=== PATIENT | female | born 1955 | race African-American/Black ===

== ENCOUNTER → 2016-10-17 | Outpatient (CLI) | payer MEDICARE, OTHER ==
--- NOTE | ~2016-10-17 | CT55 ---
[facility] A Service of [facility] & [facility] RADIOLOGY TEXT RESULTS PATIENT: ANUP[facility] BEGUM [facility] UN[facility] #: [id number] AGE: [address]: Mariah Carey MD SEX: F ORDER DR: [id number] [facility] [address] [place], [place] [address] [id number] O MR#: [id number] Acc #: [id number] NAME: ANUPAMA BEGUM : 1955 SEX: F STUDY DATE/TIME: 10/17/2016 15:33 UNIT: CCAT ROOM: STUDY DESCRIPTION: CT Chest W Con Attending Physician: Mariah Carey M.D., Ph.D. Referring Physician: Mariah Carey M.D., Ph.D. Ordering Physician: Mariah Carey M.D., Ph.D. Primary Care Physician: Lacey Valdez M.D. MEDICAL IMAGING REPORT This report is preliminary unless electronic signature is present EXAM CT chest with contrast, 10/17/2016, 1533 hours. CLINICAL HISTORY 61-year-old woman with a history of breast cancer and anal cancer, history of previous chemotherapy and radiation therapy, observation for suspected malignant neoplasm. Patient has no current chest complaints. COMPARISON None available. TECHNIQUE Dynamic helical CT images were obtained from the lung apices through the adrenal glands. Sagittal and coronal reconstructions were performed. Contrast was Isovue-370 70 mL IV. Total exam DLP for the chest, abdomen, and pelvis exam today is 1305 mGy-cm. This CT exam was performed with one or more of the following radiation dose reduction techniques: automatic exposure control, adjustment of mA and/or kV according to patient size, and iterative reconstruction. FINDINGS Images through the thoracic inlet demonstrate no thyroid mass or supraclavicular adenopathy. There is a right central venous port catheter with tip terminating in the SVC. Images through the chest demonstrate ectasia of the ascending aorta measuring 3.6 cm with no dissection. There is no pathologic mediastinal, hilar, or axillary adenopathy. There is a 1 cm right infrahilar node felt likely benign. There is no pericardial or pleural fluid. There is a very small hiatal hernia. [facility]. [facility] A Service of [facility] RADIOLOGY TEXT RESULTS PATIENT: ANUPAMA BEGUM LOCATION: [facility] : 51 UNIT #: [id number] AGE: [address]: Mariah Carey MD SEX: F ORDER DR: Lung window images demonstrate a 2 mm noncalcified nodule in the anterior left upper lobe and the lateral left upper lobe. These abut the pleural surface. There is a vague 3 mm nodule associated with the pleura of the major fissure on image 25 on the left. There is a calcified granuloma at the left base and small noncalcified nodules abutting the dome of the hemidiaphragm. The right lung demonstrates tiny micronodules, as well. At least 1 of these appears calcified. There is some linear atelectasis at the right base. Please see CT abdomen report for findings below the hemidiaphragms. Bone window images demonstrate diffuse sclerotic or blastic changes in almost all of the visualized vertebral bodies, as well as the manubrium and sternum consistent with metastatic disease to bone, most likely from breast primary. No fracture or canal compromise is demonstrated. IMPRESSION 1. There is left mastectomy change with no chest wall recurrence seen. 2. There is underlying benign calcified granulomatous change with tiny subpleural nodules in both lungs, some of which are calcified and some which are noncalcified. These are indeterminate. Correlation with historical imaging would be helpful in assessing stability. 3. Diffuse mixed blastic/sclerotic change throughout the vertebral bodies of the thoracic spine, as well as the manubrium and sternum consistent with bone metastasis likely from breast carcinoma. 4. Please see separately dictated report for findings below the hemidiaphragms on the CT abdomen and pelvis study. Dictated by... Mena Pugh M.D. THIS IS AN ELECTRONICALLY VERIFIED REPORT Mena Pugh M.D. at 10/18/2016 8:41 PM TAMICA/chrissy TD: 10/18/2016 15:56 JOB #: [id number] MEDICAL IMAGING REPORT Page 1 of 1 COPY
--- NOTE | ~2016-10-17 | CT2 ---
[facility] A Service of [facility] & [facility] RADIOLOGY TEXT RESULTS PATIENT: ANUPAMA BEGUM [facility] 51 UNIT #: [id number] AGE: [address]: Mariah Carey MD SEX: F ORDER DR: [id number] [facility] [address] [place], [place] [address] [id number] O MR#: [id number] Acc #: [id number] NAME: ANUPAMA BEGUM : 1955 SEX: F STUDY DATE/TIME: 10/17/2016 13:56 UNIT: CCAT ROOM: STUDY DESCRIPTION: CT Abd and Pelv W Cont Attending Physician: Mariah Carey M.D., Ph.D. Referring Physician: Mariah Carey M.D., Ph.D. Ordering Physician: Mariah Carey M.D., Ph.D. Primary Care Physician: Lacey Valdez M.D. MEDICAL IMAGING REPORT This report is preliminary unless electronic signature is present EXAM Abdomen and pelvis CT with contrast HISTORY Breast cancer. The patient is currently asymptomatic. Evaluate for abdomen and pelvis malignancy suspected. TECHNIQUE Axial images were obtained through the abdomen and pelvis with intravenous contrast. 100 mL of Isovue was used. This CT exam was performed with one or more of the following radiation dose reduction techniques: automatic exposure control, adjustment of mA and/or kV according to patient size, and iterative reconstruction. FINDINGS There is a subtle area of low density that is poorly defined in the right hepatic lobe. It has a more curvilinear configuration suggestive of an unopacified vascular structure rather than a mass. It only measures approximately 8.0 x 12.0 mm. Metastatic disease cannot be completely excluded. I favor this being a short segment of unopacified and perhaps thrombosed portal vein. No other suspicious liver lesions are seen. The spleen shows an irregular enhancement pattern probably secondary to the phase of contrast opacification at the time of scanning but small metastatic lesions throughout the spleen cannot be excluded. Additionally, there is a small nodular mass off the tip of the tail of the pancreas measuring about 14.0 mm in diameter. The possibility of a pancreatic metastasis from breast cancer or primary pancreatic tumor is not excluded. Followup is warranted with repeat scanning recommended in 3 months. The kidneys and adrenals are unremarkable. Bilateral renal cysts are noted. No enlarged retroperitoneal lymph nodes are seen. No distended bowel loops are noted. Sigmoid diverticulosis is seen without evidence of diverticulitis. Numerous blastic lesions are seen in the STS. [facility] A Service of [facility] RADIOLOGY TEXT RESULTS PATIENT: ANUPAMA BEGUM LOCATION: [facility] : 51 UNIT #: [id number] AGE: [address]: Mariah Carey MD SEX: F ORDER DR: skeleton consistent with widespread metastatic breast cancer in the skeleton. No pathologic thoracolumbar vertebral fractures are noted. In the pelvis there is no evidence of adenopathy, mass or fluid collection. IMPRESSION 1. Widespread skeletal metastatic breast cancer. 2. Small nodule at the tip of the tail of the pancreas. Pancreatic primary or metastatic disease is a strong consideration. 3. Multiple nodules throughout the spleen suspicious for splenic metastasis. 4. There is a small curvilinear focus of low density in the liver that has an appearance more suggestive of a thrombosed segment of portal vein rather than metastatic disease although metastatic disease should be included in the differential diagnosis. Dictated by... Julio C Palomino M.D. THIS IS AN ELECTRONICALLY VERIFIED REPORT Julio C Palomino M.D. at 10/18/2016 4:08 PM Farzaneh TD: 10/18/2016 15:23 JOB #: [id number] MEDICAL IMAGING REPORT Page 1 of 1 COPY
[2016-10-17 15:21] LABS: POC - CREATININE 0.89 mg/dL (0.44-1.03); POC - GFR >60.0 mL/min (>60)
== END | disposition home or self-care (01) ==
LOC: CCAT 13:00
PROVIDERS: Internal Medicine Hematology & Oncology
DX: C79.51 Secondary malignant neoplasm of bone (principal); K86.89 Other specified diseases of pancreas; D73.89 Other diseases of spleen; J84.10 Pulmonary fibrosis, unspecified; C21.1 Malignant neoplasm of anal canal; Z90.12 Acquired absence of left breast and nipple
CPT/HCPCS: 71260; 74177; 82565; Q9967